=== PATIENT | female | born 1945 | race Caucasian/White ===

== ENCOUNTER 2021-06-18 13:15 | Inpatient (IN) | payer OTHER, MEDICARE ==
[2021-06-14 13:30] VITALS: BMI 32.9
[2021-06-21] MEDS ORDERED: MIDAZOLAM HCL 2 MG/2 ML SINGLE DOSE VIAL ONE ×3 (06:39→14:08)
[2021-06-21] MEDS ORDERED: BUPIVACAINE HCL/PF 0.5% (5 MG/ML) 30 ML VIAL IJ ONE ×2 (06:39→12:04)
[2021-06-21] MEDS ORDERED: BUPIVACAINE LIPOSOME/PF (EXPAREL) 266 MG/20 ML VIAL ONE (06:39)
[2021-06-21] MEDS ORDERED: SODIUM CHLORIDE 0.9% P/F 10 ML VIAL IJ ONE (06:39)
[2021-06-21] MEDS ORDERED: VANCOMYCIN 1,000 MG VIAL (RESTRICTED TO ID ONLY) ONE (11:50)
[2021-06-21] MEDS ORDERED: SUCCINYLCHOLINE CHLORIDE 200 MG/10 ML SYRINGE ONE (12:05)
[2021-06-21] MEDS ORDERED: ePHEDrine SULFATE 50 MG/1 ML AMPULE ONE (12:32)
[2021-06-21] MEDS ORDERED: TRANEXAMIC ACID 1000 MG/10 ML VIAL ONE (14:50)
[2021-06-21] MEDS ORDERED: BUPIVICAINE 0.25%/MORPH PF/KETOROLAC - 51ML DISP.SYRINGE IA ONE (15:04)
[2021-06-21] MEDS ORDERED: ONDANSETRON 4 MG/2 ML VIAL IVPUSH PRN ×2 (15:52→15:53)
[2021-06-21] MEDS ORDERED: MAG HYDROX/AL HYDROX/SIMETH 30 ML UNIT-DOSE CUP PO PRN (15:52)
[2021-06-21] MEDS ORDERED: oxyCODONE HCL 5 MG TABLET PO PRN (15:53)
[2021-06-21] MEDS ORDERED: LACTATED RINGERS SOLUTION 1,000 ML IV SCH (16:00)
[2021-06-21] MEDS: ACETAMINOPHEN 500 MG TABLET (FP) PO SCH ×2 (17:03→21:42)
[2021-06-21] MEDS ORDERED: DEXTROSE 5%-WATER 100 ML IVPB ONE (21:25)
[2021-06-21] MEDS ORDERED: ceFAZolin SODIUM 1 GM VIAL ONE (21:25)
[2021-06-21] MEDS: CEFAZOLIN 2 GM in DEXTROSE 5%-WATER 100 ML IVPB SCH (21:40)
[2021-06-21] MEDS: GABAPENTIN 300 MG CAPSULE PO SCH (21:41)
[2021-06-21] MEDS: SENNOSIDES/DOCUSATE COMBO (SENNA PLUS) TABLET (UD) PO SCH (21:41)
[2021-06-21] MEDS: oxyCODONE HCL 5 MG TABLET PO PRN (21:44)
[2021-06-22] MEDS: CEFAZOLIN 2 GM in DEXTROSE 5%-WATER 100 ML IVPB SCH ×2 (04:19→13:17)
[2021-06-22] MEDS: ACETAMINOPHEN 500 MG TABLET (FP) PO SCH ×4 (04:20→21:19)
[2021-06-22] MEDS ORDERED: DEXTROSE 5%-WATER 100 ML IVPB ONE ×2 (06:10→13:14)
[2021-06-22] MEDS ORDERED: ceFAZolin SODIUM 1 GM VIAL ONE ×2 (06:10→13:14)
[2021-06-22 08:28] LABS: CALCIUM 8.9 mg/dl (8.5-10); CREATININE 0.7 mg/dl (0.55-1.3)
[2021-06-22 09:46] LABS: HEMATOCRIT 32.7 % (32.4-45.2); HEMOGLOBIN 10.8 GM/dL (10.7-15.3); MCH 29.1 pg (25.7-33.7); MCHC 33.2 g/dl (32.0-36.0); MEAN CELL VOLUME 87.8 fl (80-96); MEAN PLT VOLUME 8.2 fl (7.5-11.1); PLATELET COUNT 293 10^3/uL (134-434); RBC 3.72 M/mm3 (3.60-5.2); WHITE BLOOD COUNT 8.4 K/mm3 (4.0-10.0)
[2021-06-22] MEDS: PANTOPRAZOLE 40 MG TABLET PO SCH (10:03)
[2021-06-22] MEDS: MULTIVITAMINS (DAILY MVI) TABLET (FP) PO SCH (10:03)
[2021-06-22] MEDS: ASPIRIN 325 MG TABLET PO SCH ×2 (10:03→21:18)
[2021-06-22] MEDS: FOLIC ACID 1 MG TABLET (FP) PO SCH (10:03)
[2021-06-22] MEDS: GABAPENTIN 300 MG CAPSULE PO SCH ×2 (10:03→21:19)
[2021-06-22] MEDS: oxyCODONE HCL 5 MG TABLET PO PRN ×3 (10:04→22:39)
[2021-06-22] MEDS: SENNOSIDES/DOCUSATE COMBO (SENNA PLUS) TABLET (UD) PO SCH ×2 (10:04→21:18)
[2021-06-23] MEDS: ACETAMINOPHEN 500 MG TABLET (FP) PO SCH ×2 (04:48→10:11)
[2021-06-23 09:57] LABS: HEMATOCRIT 33.2 % (32.4-45.2); HEMOGLOBIN 10.9 GM/dL (10.7-15.3); MCH 29.2 pg (25.7-33.7); MCHC 32.7 g/dl (32.0-36.0); MEAN CELL VOLUME 89.1 fl (80-96); MEAN PLT VOLUME 8.8 fl (7.5-11.1); PLATELET COUNT 286 10^3/uL (134-434); RBC 3.72 M/mm3 (3.60-5.2); RDW 14.4 % (11.6-15.6); WHITE BLOOD COUNT 7.8 K/mm3 (4.0-10.0)
[2021-06-23] MEDS: ASPIRIN 325 MG TABLET PO SCH (10:09)
[2021-06-23] MEDS: MULTIVITAMINS (DAILY MVI) TABLET (FP) PO SCH (10:10)
[2021-06-23] MEDS: FOLIC ACID 1 MG TABLET (FP) PO SCH (10:10)
[2021-06-23] MEDS: PANTOPRAZOLE 40 MG TABLET PO SCH (10:10)
[2021-06-23] MEDS: GABAPENTIN 300 MG CAPSULE PO SCH (10:10)
[2021-06-23] MEDS: SENNOSIDES/DOCUSATE COMBO (SENNA PLUS) TABLET (UD) PO SCH (10:11)
[2021-06-23 10:14] VITALS: BP 116/46; PULSE 76; TEMP 97.8
== END 2021-06-23 11:21 | disposition home or self-care (01) | DRG 470 ==
LOC: FM/S 06-21 06:19
PROVIDERS: ADMIT Orthopaedic Surgery Sports Medicine; ATTEND Nurse Practitioner Family
PROC: 0SRD0J9 Replacement of Left Knee Joint with Synthetic Substitute, Cemented, Open Approach (ICD-10-PCS; principal; 2021-06-21 12:49)
DX: M17.12 Unilateral primary osteoarthritis, left knee (principal); M32.9 Systemic lupus erythematosus, unspecified; M06.9 Rheumatoid arthritis, unspecified
CPT/HCPCS: 36415; 73560-TC-LT-FY; 80048; 85027; 94760; 97010-GP; 97116-GP; 97161-GP; C9803; U0003; U0005

== ENCOUNTER 2021-09-07 07:30 | Inpatient (IN) | payer OTHER, MEDICARE ==
[2021-09-07 07:43] VITALS: BMI 32.3
[2021-09-07 08:50] LABS: BASO % 1.4 % (0-2.0); EOS % 4.4 % (0-4.5); HEMATOCRIT 33.6 % (32.4-45.2); HEMOGLOBIN 11.2 GM/dL (10.7-15.3); LYMPH % 21.7 % (8-40); MCH 28.3 pg (25.7-33.7); MCHC 33.4 g/dl (32.0-36.0); MEAN CELL VOLUME 84.9 fl (80-96); MONO % 5.5 % (3.8-10.2); PLATELET COUNT 408 10^3/uL (134-434); RBC 3.96 M/mm3 (3.60-5.2); RDW 14.9 % (11.6-15.6); WHITE BLOOD COUNT 5.6 K/mm3 (4.0-10.0)
[2021-09-07 09:16] LABS: ALBUMIN 3.5 g/dl (3.4-5.0); BLOOD UREA NITROGEN 13.7 mg/dL (7-18); CALCIUM 9.5 mg/dL (8.5-10.1)
[2021-09-07 09:19] LABS: CREATININE 0.6 mg/dL (0.55-1.3)
[2021-09-07 09:21] LABS: BILIRUBIN,TOTAL 0.4 mg/dL (0.2-1); TOT PROT 7.4 g/dl (6.4-8.2)
[2021-09-07] MEDS ORDERED: VANCOMYCIN 1 GM in D5W (PRE-DOCKED) 1,000 MG/250 ML IVPB ONE (09:39)
[2021-09-07] MEDS ORDERED: VANCOMYCIN 1 GRAM (PRE-DOCKED) 1,000 MG/250 ML BAG IVPB ONE (09:42)
[2021-09-07] MEDS: ACETAMINOPHEN 325 MG TABLET (FP) PO PRN (18:57)
[2021-09-08] MEDS: ACETAMINOPHEN 325 MG TABLET (FP) PO PRN
[2021-09-08] MEDS ORDERED: DEXTROSE 5%-WATER 100 ML IVPB ONE (09:55)
[2021-09-08 10:21] LABS: HEMATOCRIT 33.9 % (32.4-45.2); HEMOGLOBIN 11.7 GM/dL (10.7-15.3); MCH 29.1 pg (25.7-33.7); MCHC 34.5 g/dl (32.0-36.0); MEAN CELL VOLUME 84.4 fl (80-96); MEAN PLT VOLUME 7.2 fl (7.5-11.1); PLATELET COUNT 409 10^3/uL (134-434); RBC 4.01 M/mm3 (3.60-5.2); RDW 14.7 % (11.6-15.6); WHITE BLOOD COUNT 5.1 K/mm3 (4.0-10.0)
[2021-09-08 10:34] LABS: CALCIUM 9.2 mg/dL (8.5-10.1)
[2021-09-08 10:35] LABS: ALBUMIN 3.4 g/dl (3.4-5.0); BLOOD UREA NITROGEN 9.5 mg/dL (7-18)
[2021-09-08 10:38] LABS: CREATININE 0.6 mg/dL (0.55-1.3)
[2021-09-08 10:40] LABS: BILIRUBIN,TOTAL 0.4 mg/dL (0.2-1); TOT PROT 7.2 g/dl (6.4-8.2)
[2021-09-08] MEDS: DAPTOMYCIN 700 MG in SODIUM CHLORIDE 50 ML IVPB SCH (10:43)
[2021-09-08] MEDS: ENOXAPARIN NA (PORCINE) 40 MG/0.4 ML DISP.SYRIN SQ SCH (10:44)
[2021-09-08] MEDS: CEFTRIAXONE 2 GM in DEXTROSE 5%-WATER 100 ML IVPB SCH (10:44)
[2021-09-08] MEDS: HYDROXYCHLOROQUINE SO4 200 MG TABLET (FP) PO SCH (10:44)
[2021-09-09] MEDS ORDERED: DEXTROSE 5%-WATER 100 ML IVPB ONE (09:08)
[2021-09-09] MEDS: ENOXAPARIN NA (PORCINE) 40 MG/0.4 ML DISP.SYRIN SQ SCH (09:16)
[2021-09-09] MEDS: CEFTRIAXONE 2 GM in DEXTROSE 5%-WATER 100 ML IVPB SCH (09:16)
[2021-09-09] MEDS: HYDROXYCHLOROQUINE SO4 200 MG TABLET (FP) PO SCH (09:17)
[2021-09-09 09:33] LABS: BASO % 2.5 % (0-2.0); EOS % 4.3 % (0-4.5); HEMATOCRIT 35.6 % (32.4-45.2); HEMOGLOBIN 11.8 GM/dL (10.7-15.3); LYMPH % 32.3 % (8-40); MCH 28.2 pg (25.7-33.7); MCHC 33.1 g/dl (32.0-36.0); MEAN CELL VOLUME 85.5 fl (80-96); MEAN PLT VOLUME 7.4 fl (7.5-11.1); MONO % 4.8 % (3.8-10.2); NEUT % 56.1 % (42.8-82.8); PLATELET COUNT 442 10^3/uL (134-434); RBC 4.16 M/mm3 (3.60-5.2); RDW 14.8 % (11.6-15.6)
[2021-09-09] MEDS: DAPTOMYCIN 700 MG in SODIUM CHLORIDE 50 ML IVPB SCH (09:36)
[2021-09-09 10:03] LABS: CALCIUM 9.2 mg/dL (8.5-10.1); CREATININE 0.6 mg/dL (0.55-1.3)
[2021-09-09 10:04] LABS: ALBUMIN 3.5 g/dl (3.4-5.0); BLOOD UREA NITROGEN 11.5 mg/dL (7-18); MAGNESIUM 2.2 mg/dL (1.8-2.4)
[2021-09-09 10:07] LABS: PHOSPHOROUS 4.6 mg/dL (2.5-4.9)
[2021-09-09 10:08] LABS: TOT PROT 7.6 g/dl (6.4-8.2)
[2021-09-09 10:21] LABS: BILIRUBIN,TOTAL 0.4 mg/dL (0.2-1)
[2021-09-10] MEDS: ACETAMINOPHEN 325 MG TABLET (FP) PO PRN (01:08)
[2021-09-10] MEDS ORDERED: DEXTROSE 5%-WATER 100 ML IVPB ONE (09:30)
[2021-09-10 09:32] LABS: BASO % 0.9 % (0-2.0); EOS % 4.8 % (0-4.5); HEMOGLOBIN 11.6 GM/dL (10.7-15.3); MCH 28.4 pg (25.7-33.7); MCHC 33.1 g/dl (32.0-36.0); MEAN CELL VOLUME 85.7 fl (80-96); MEAN PLT VOLUME 7.4 fl (7.5-11.1); MONO % 3.8 % (3.8-10.2); NEUT % 59.5 % (42.8-82.8); PLATELET COUNT 384 10^3/uL (134-434); RBC 4.08 M/mm3 (3.60-5.2); RDW 14.7 % (11.6-15.6); WHITE BLOOD COUNT 5.1 K/mm3 (4.0-10.0)
[2021-09-10 10:00] LABS: BLOOD UREA NITROGEN 12.7 mg/dL (7-18); CALCIUM 9.6 mg/dL (8.5-10.1); MAGNESIUM 2.3 mg/dL (1.8-2.4)
[2021-09-10 10:03] LABS: CREATININE 0.7 mg/dL (0.55-1.3)
[2021-09-10 10:04] LABS: PHOSPHOROUS 4.9 mg/dL (2.5-4.9)
[2021-09-10 10:16] LABS: ERYTHROCYTE SEDIMENTATION RATE 37 mm/hr (0-30)
[2021-09-10] MEDS: CEFTRIAXONE 2 GM in DEXTROSE 5%-WATER 100 ML IVPB SCH (10:23)
[2021-09-10] MEDS: HYDROXYCHLOROQUINE SO4 200 MG TABLET (FP) PO SCH (10:23)
[2021-09-10] MEDS: ENOXAPARIN NA (PORCINE) 40 MG/0.4 ML DISP.SYRIN SQ SCH (10:23)
[2021-09-10] MEDS: DAPTOMYCIN 700 MG in SODIUM CHLORIDE 50 ML IVPB SCH (11:56)
[2021-09-11] MEDS ORDERED: DEXTROSE 5%-WATER 100 ML IVPB ONE (08:58)
[2021-09-11 09:18] LABS: EOS % 4.4 % (0-4.5); HEMATOCRIT 34.1 % (32.4-45.2); HEMOGLOBIN 11.3 GM/dL (10.7-15.3); LYMPH % 29.5 % (8-40); MCH 28.3 pg (25.7-33.7); MCHC 33.1 g/dl (32.0-36.0); MEAN CELL VOLUME 85.6 fl (80-96); NEUT % 59.1 % (42.8-82.8); PLATELET COUNT 373 10^3/uL (134-434); RBC 3.99 M/mm3 (3.60-5.2); RDW 14.8 % (11.6-15.6)
[2021-09-11 09:58] LABS: CALCIUM 9.1 mg/dL (8.5-10.1)
[2021-09-11 09:59] LABS: BLOOD UREA NITROGEN 11.4 mg/dL (7-18); CREATININE 0.6 mg/dL (0.55-1.3); PHOSPHOROUS 3.9 mg/dL (2.5-4.9)
[2021-09-11] MEDS: CEFTRIAXONE 2 GM in DEXTROSE 5%-WATER 100 ML IVPB SCH (10:36)
[2021-09-11] MEDS: HYDROXYCHLOROQUINE SO4 200 MG TABLET (FP) PO SCH (10:37)
[2021-09-11] MEDS: ENOXAPARIN NA (PORCINE) 40 MG/0.4 ML DISP.SYRIN SQ SCH (10:37)
[2021-09-11 10:54] VITALS: BP 127/62; PULSE 71; TEMP 97.8
[2021-09-11] MEDS: DAPTOMYCIN 700 MG in SODIUM CHLORIDE 50 ML IVPB SCH (11:29)
[2021-10-03 12:47] LABS: HEMATOCRIT 34.6 % (32.4-45.2); HEMOGLOBIN 12.2 G/dL (10.7-15.3); MCH 29.9 pg (25.7-33.7); MCHC 35.3 g/dl (32.0-36.0); MEAN CELL VOLUME 84.7 fl (80-96); MEAN PLT VOLUME 7.2 fl (7.5-11.1); PLATELET COUNT 295.6 10^3/uL (134-434); RBC 4.08 10^6/uL (3.60-5.2); RDW 15.3 % (11.6-15.6); WHITE BLOOD COUNT 6.1 10^3/uL (4.0-10.8)
[2021-10-03 12:56] LABS: ALBUMIN 3.9 g/dl (3.4-5.0); BILIRUBIN,TOTAL 0.5 mg/dl (0.2-1); CALCIUM 9.7 mg/dl (8.5-10); CREATININE 0.6 mg/dl (0.55-1.3); TOT PROT 7.2 g/dl (6.4-8.2)
== END 2021-09-11 14:35 | disposition home or self-care (01) | DRG 560 ==
LOC: JER 07:30 → JERBED 10:12 → J5S 10:55
PROVIDERS: ADMIT Internal Medicine; ATTEND Internal Medicine
PROC: 05HB33Z Insertion of Infusion Device into Right Basilic Vein, Percutaneous Approach (ICD-10-PCS; principal; 2021-09-11)
PROC: B51MZZA Fluoroscopy of Right Upper Extremity Veins, Guidance (ICD-10-PCS; 2021-09-11)
DX: T84.59XA Infection and inflammatory reaction due to other internal joint prosthesis, initial encounter (principal); M86.9 Osteomyelitis, unspecified; L03.90 Cellulitis, unspecified; Z96.659 Presence of unspecified artificial knee joint; M06.9 Rheumatoid arthritis, unspecified; M32.9 Systemic lupus erythematosus, unspecified; Y83.9 Surgical procedure, unspecified as the cause of abnormal reaction of the patient, or of later complication, without mention of misadventure at the time of the procedure
CPT/HCPCS: 36415; 36569; 71045-TC-FY; 77001-TC-FY; 80048; 80053; 82550; 83735; 84100; 85025; 85027; 85651; 86140; 87040; 93005; 93010; 97116-GP; 97162-GP; 99285-25; C1751; C9803-CS; J0878; U0003; U0005

== ENCOUNTER 2021-09-12 11:08 | Day surgery (SDC) | payer OTHER, MEDICARE ==
[2021-09-12] MEDS ORDERED: CEFTRIAXONE 2 GM in DEXTROSE 5%-WATER 100 ML IVPB ONE ×2 (11:45→12:00)
[2021-09-12] MEDS ORDERED: DEXTROSE 5%-WATER 100 ML IVPB ONE (11:54)
[2021-09-12 12:01] VITALS: TEMP 97.7
[2021-09-12] MEDS ORDERED: DAPTOMYCIN 700 MG in SODIUM CHLORIDE 50 ML IVPB ONE (12:30)
[2021-09-12 14:02] VITALS: BP 126/64; PULSE 79
== END 2021-09-12 17:21 | disposition home or self-care (01) ==
LOC: FINFUSION 11:08 → FM/S 11:09 → FINFUSION 17:21
PROVIDERS: ATTEND Internal Medicine Infectious Disease
DX: M86.9 Osteomyelitis, unspecified (principal)
CPT/HCPCS: 96365; 96367; J0878

== ENCOUNTER 2021-09-13 11:10 | Day surgery (SDC) | payer OTHER, MEDICARE ==
[2021-09-13] MEDS ORDERED: DEXTROSE 5%-WATER 100 ML IVPB ONE (11:36)
[2021-09-13 11:56] VITALS: TEMP 97.8
[2021-09-13] MEDS ORDERED: CEFTRIAXONE 2 GM in DEXTROSE 5%-WATER 100 ML IVPB ONE (12:00)
[2021-09-13] MEDS ORDERED: DAPTOMYCIN 700 MG in SODIUM CHLORIDE 50 ML IVPB ONE (12:30)
[2021-09-13 13:42] VITALS: BP 130/80; PULSE 77
== END 2021-09-13 15:00 | disposition home or self-care (01) ==
LOC: FINFUSION 11:10 → FM/S 11:12 → FINFUSION 15:00
PROVIDERS: ATTEND Internal Medicine Infectious Disease
DX: M86.9 Osteomyelitis, unspecified (principal)
CPT/HCPCS: 96365; 96367; J0878

== ENCOUNTER 2021-09-14 10:44 | Day surgery (SDC) | payer OTHER, MEDICARE ==
[2021-09-14] MEDS ORDERED: CEFTRIAXONE 2 GM in DEXTROSE 5%-WATER 100 ML IVPB ONE (11:45)
[2021-09-14 11:51] VITALS: PULSE 75; TEMP 98.3
[2021-09-14] MEDS ORDERED: DAPTOMYCIN 700 MG in SODIUM CHLORIDE 50 ML IVPB ONE (12:30)
== END 2021-09-14 13:46 | disposition home or self-care (01) ==
LOC: FINFUSION 10:44 → FM/S 10:45 → FINFUSION 13:46
PROVIDERS: ATTEND Internal Medicine Infectious Disease
DX: M86.9 Osteomyelitis, unspecified (principal)
CPT/HCPCS: 96365; 96367; J0878

== ENCOUNTER 2021-09-15 10:59 | Day surgery (SDC) | payer OTHER, MEDICARE ==
[2021-09-15] MEDS ORDERED: DAPTOMYCIN 700 MG in SODIUM CHLORIDE 50 ML IVPB SCH ×2 (11:45→12:30)
[2021-09-15] MEDS ORDERED: CEFTRIAXONE 2 GM-D5W BAG 2 GM/50 ML BAG IVPB ONE (11:45)
[2021-09-15] MEDS: CEFTRIAXONE 2 GM-D5W BAG 2 GM/50 ML BAG IVPB ONE ×2 (12:30→12:31)
[2021-09-15 14:11] VITALS: BP 135/60; PULSE 70; TEMP 98
== END 2021-09-15 14:07 | disposition home or self-care (01) ==
LOC: FINFUSION 10:59 → FM/S 11:00 → FINFUSION 14:07
PROVIDERS: ATTEND Internal Medicine Infectious Disease
DX: M86.9 Osteomyelitis, unspecified (principal)
CPT/HCPCS: 96365; 96367; J0878

== ENCOUNTER 2021-09-16 10:55 | Day surgery (SDC) | payer OTHER, MEDICARE ==
[2021-09-16] MEDS ORDERED: CEFTRIAXONE 2 GM in DEXTROSE 5%-WATER 100 ML IVPB ONE (12:00)
[2021-09-16] MEDS ORDERED: DAPTOMYCIN 700 MG in SODIUM CHLORIDE 50 ML IVPB ONE (13:00)
[2021-09-16 14:21] VITALS: BP 137/61; PULSE 69; TEMP 97.8
== END 2021-09-16 14:34 | disposition home or self-care (01) ==
LOC: FINFUSION 10:55 → FM/S 14:25 → FINFUSION 14:34
PROVIDERS: ATTEND Internal Medicine Infectious Disease
DX: M86.9 Osteomyelitis, unspecified (principal)
CPT/HCPCS: 96365; 96367; J0878

== ENCOUNTER 2021-09-17 11:24 | Day surgery (SDC) | payer OTHER, MEDICARE ==
[2021-09-17] MEDS ORDERED: DEXTROSE 5%-WATER - 100 ML IVPB ONE (11:45)
[2021-09-17] MEDS ORDERED: CEFTRIAXONE 2 GM in DEXTROSE 5%-WATER - 100 ML IVPB ONE (12:00)
[2021-09-17 12:11] VITALS: PULSE 78; TEMP 98
[2021-09-17] MEDS ORDERED: DAPTOMYCIN 700 MG in SODIUM CHLORIDE 50 ML IVPB ONE (12:30)
[2021-09-17 13:52] VITALS: BP 110/54
== END 2021-09-17 14:34 | disposition home or self-care (01) ==
LOC: FINFUSION 11:24 → FM/S 11:29 → FINFUSION 14:34
PROVIDERS: ATTEND Internal Medicine Infectious Disease
DX: M86.9 Osteomyelitis, unspecified (principal)
CPT/HCPCS: 96365; 96367; J0878

== ENCOUNTER 2021-09-18 11:06 | Day surgery (SDC) | payer OTHER, MEDICARE ==
[2021-09-18] MEDS ORDERED: DEXTROSE 5%-WATER 100 ML IVPB ONE (11:35)
[2021-09-18] MEDS ORDERED: CEFTRIAXONE 2 GM in DEXTROSE 5%-WATER 100 ML IVPB ONE (12:00)
[2021-09-18] MEDS ORDERED: DAPTOMYCIN 700 MG in SODIUM CHLORIDE 50 ML IVPB ONE (12:30)
[2021-09-18 13:24] VITALS: BP 112/54; PULSE 79; TEMP 97.8
== END 2021-09-18 13:00 | disposition home or self-care (01) ==
LOC: FINFUSION 11:06 → FM/S 11:11 → FINFUSION 13:00
PROVIDERS: ATTEND Internal Medicine Infectious Disease
DX: M86.9 Osteomyelitis, unspecified (principal)
CPT/HCPCS: 96365; 96367; J0878

== ENCOUNTER 2021-09-19 10:59 | Day surgery (SDC) | payer OTHER, MEDICARE ==
[2021-09-19] MEDS ORDERED: DEXTROSE 5%-WATER 100 ML IVPB ONE (11:17)
[2021-09-19] MEDS ORDERED: CEFTRIAXONE 2 GM in DEXTROSE 5%-WATER 100 ML IVPB ONE (11:30)
[2021-09-19] MEDS ORDERED: DAPTOMYCIN 700 MG in SODIUM CHLORIDE 50 ML IVPB ONE (12:15)
[2021-09-19 13:48] VITALS: BP 123/59; PULSE 72; TEMP 98.1
[2021-09-19 14:15] LABS: HEMATOCRIT 33.6 % (32.4-45.2); HEMOGLOBIN 11.7 G/dL (10.7-15.3); MCH 29.5 pg (25.7-33.7); MCHC 34.7 g/dl (32.0-36.0); MEAN CELL VOLUME 85.1 fl (80-96); MEAN PLT VOLUME 7.1 fl (7.5-11.1); RBC 3.95 10^6/uL (3.60-5.2); RDW 15.6 % (11.6-15.6); WHITE BLOOD COUNT 6.2 10^3/uL (4.0-10.8)
[2021-09-19 14:34] LABS: ALBUMIN 3.6 g/dl (3.4-5.0); BILIRUBIN,TOTAL 0.4 mg/dl (0.2-1); CALCIUM 9.2 mg/dl (8.5-10); CREATININE 0.5 mg/dl (0.55-1.3); TOT PROT 7.1 g/dl (6.4-8.2)
== END 2021-09-19 14:02 | disposition home or self-care (01) ==
LOC: FINFUSION 10:59 → FM/S 11:03 → FINFUSION 14:02
PROVIDERS: ATTEND Internal Medicine Infectious Disease
DX: M86.9 Osteomyelitis, unspecified (principal)
CPT/HCPCS: 36415; 80053; 82550; 85027; 96365; 96367; J0878

== ENCOUNTER 2021-09-20 10:38 | Day surgery (SDC) | payer OTHER, MEDICARE ==
[2021-09-20 11:16] VITALS: TEMP 97.9
[2021-09-20] MEDS ORDERED: DAPTOMYCIN 700 MG in SODIUM CHLORIDE 50 ML IVPB ONE (12:00)
[2021-09-20] MEDS ORDERED: CEFTRIAXONE 2 GM in DEXTROSE 5%-WATER 100 ML IVPB ONE (12:00)
[2021-09-20 12:55] VITALS: BP 132/54; PULSE 72
== END 2021-09-20 13:01 | disposition home or self-care (01) ==
LOC: FINFUSION 10:38 → FM/S 11:09 → FINFUSION 13:01
PROVIDERS: ATTEND Internal Medicine Infectious Disease
DX: M86.9 Osteomyelitis, unspecified (principal)
CPT/HCPCS: 96365; 96366; 96367; J0878

== ENCOUNTER 2021-09-21 10:41 | Day surgery (SDC) | payer OTHER, MEDICARE ==
[2021-09-21] MEDS ORDERED: DEXTROSE 5%-WATER 100 ML IVPB ONE (10:58)
[2021-09-21] MEDS ORDERED: CEFTRIAXONE 2 GM in DEXTROSE 5%-WATER 100 ML IVPB ONE (11:00)
[2021-09-21] MEDS ORDERED: DAPTOMYCIN 700 MG in SODIUM CHLORIDE 50 ML IVPB ONE (11:45)
[2021-09-21 12:18] VITALS: BP 130/64; PULSE 82; TEMP 98.1
== END 2021-09-21 12:23 | disposition home or self-care (01) ==
LOC: FINFUSION 10:41 → FM/S 10:42 → FINFUSION 12:23
PROVIDERS: ATTEND Internal Medicine Infectious Disease
DX: M86.9 Osteomyelitis, unspecified (principal)
CPT/HCPCS: 96365; 96367; J0878

== ENCOUNTER 2021-09-22 10:51 | Day surgery (SDC) | payer OTHER, MEDICARE ==
[2021-09-22] MEDS ORDERED: CEFTRIAXONE 2 GM-D5W BAG 2 GM/50 ML BAG IVPB ONE (11:15)
[2021-09-22] MEDS ORDERED: DAPTOMYCIN 700 MG in SODIUM CHLORIDE 50 ML IVPB SCH (11:15)
[2021-09-22 12:40] VITALS: BP 141/70; PULSE 66; TEMP 98
== END 2021-09-22 12:45 | disposition home or self-care (01) ==
LOC: FINFUSION 10:51 → FM/S 10:52 → FINFUSION 12:45
PROVIDERS: ATTEND Internal Medicine Infectious Disease
DX: M86.9 Osteomyelitis, unspecified (principal)
CPT/HCPCS: 96365; 96367; J0878

== ENCOUNTER 2021-09-23 10:46 | Day surgery (SDC) | payer OTHER, MEDICARE ==
[2021-09-23 11:09] VITALS: PULSE 73
[2021-09-23] MEDS ORDERED: CEFTRIAXONE 2 GM in DEXTROSE 5%-WATER 100 ML IVPB ONE (11:30)
[2021-09-23 12:30] VITALS: BP 129/58; TEMP 97.8
[2021-09-23] MEDS ORDERED: DAPTOMYCIN 700 MG in SODIUM CHLORIDE 50 ML IVPB ONE (12:30)
== END 2021-09-23 12:30 | disposition home or self-care (01) ==
LOC: FINFUSION 10:46 → FM/S 10:51 → FINFUSION 12:30
PROVIDERS: ATTEND Internal Medicine Infectious Disease
DX: M86.9 Osteomyelitis, unspecified (principal)
CPT/HCPCS: 96365; 96366; 96367; J0878

== ENCOUNTER 2021-09-24 11:06 | Day surgery (SDC) | payer OTHER, MEDICARE ==
[2021-09-24] MEDS ORDERED: DEXTROSE 5%-WATER 100 ML IVPB ONE (11:15)
[2021-09-24] MEDS ORDERED: CEFTRIAXONE 2 GM in DEXTROSE 5%-WATER 100 ML IVPB ONE (11:30)
[2021-09-24] MEDS ORDERED: DAPTOMYCIN 700 MG in SODIUM CHLORIDE 50 ML IVPB ONE (12:30)
[2021-09-24 12:56] VITALS: BP 136/56; PULSE 75; TEMP 98.1
== END 2021-09-24 13:03 | disposition home or self-care (01) ==
LOC: FINFUSION 11:06 → FM/S 11:07 → FINFUSION 13:03
PROVIDERS: ATTEND Internal Medicine Infectious Disease
DX: M86.9 Osteomyelitis, unspecified (principal)
CPT/HCPCS: 96365; 96367; J0878

== ENCOUNTER 2021-09-25 10:51 | Day surgery (SDC) | payer OTHER, MEDICARE ==
[2021-09-25] MEDS ORDERED: DEXTROSE 5%-WATER 100 ML IVPB ONE (11:14)
[2021-09-25] MEDS ORDERED: CEFTRIAXONE 2 GM in DEXTROSE 5%-WATER 100 ML IVPB ONE (11:15)
[2021-09-25] MEDS ORDERED: DAPTOMYCIN 700 MG in SODIUM CHLORIDE 50 ML IVPB ONE (11:30)
[2021-09-25 13:38] VITALS: BP 121/55; PULSE 65; TEMP 98.1
== END 2021-09-25 13:44 | disposition home or self-care (01) ==
LOC: FINFUSION 10:51 → FM/S 10:52 → FINFUSION 13:44
PROVIDERS: ATTEND Internal Medicine Infectious Disease
DX: M86.9 Osteomyelitis, unspecified (principal)
CPT/HCPCS: 96365; 96366; 96367; J0878

== ENCOUNTER 2021-09-26 12:29 | Day surgery (SDC) | payer OTHER, MEDICARE ==
[2021-09-26] MEDS ORDERED: DEXTROSE 5%-WATER 100 ML IVPB ONE (13:12)
[2021-09-26] MEDS ORDERED: DAPTOMYCIN 700 MG in SODIUM CHLORIDE 50 ML IVPB ONE (13:15)
[2021-09-26] MEDS ORDERED: CEFTRIAXONE 2 GM in DEXTROSE 5%-WATER 100 ML IVPB ONE (13:15)
[2021-09-26 13:39] LABS: HEMATOCRIT 34.3 % (32.4-45.2); HEMOGLOBIN 11.8 G/dL (10.7-15.3); MCH 29.2 pg (25.7-33.7); MCHC 34.5 g/dl (32.0-36.0); MEAN CELL VOLUME 84.7 fl (80-96); MEAN PLT VOLUME 7.3 fl (7.5-11.1); PLATELET COUNT 338.6 10^3/uL (134-434); RBC 4.05 10^6/uL (3.60-5.2); RDW 15.3 % (11.6-15.6); WHITE BLOOD COUNT 6.6 10^3/uL (4.0-10.8)
[2021-09-26 13:50] LABS: ALBUMIN 3.8 g/dl (3.4-5.0); BILIRUBIN,TOTAL 0.4 mg/dl (0.2-1); CALCIUM 9.7 mg/dl (8.5-10); CREATININE 0.6 mg/dl (0.55-1.3); TOT PROT 7.4 g/dl (6.4-8.2)
[2021-09-26 13:54] VITALS: TEMP 98.2
[2021-09-26 16:29] VITALS: BP 112/55; PULSE 74
== END 2021-09-26 14:30 | disposition home or self-care (01) ==
LOC: FINFUSION 12:29 → FM/S 12:29 → FINFUSION 14:30
PROVIDERS: ATTEND Internal Medicine Infectious Disease
DX: M86.9 Osteomyelitis, unspecified (principal)
CPT/HCPCS: 36415; 80053; 82550; 85027; 96365; 96367; J0878

== ENCOUNTER 2021-09-27 11:11 | Day surgery (SDC) | payer OTHER, MEDICARE ==
[2021-09-27] MEDS ORDERED: CEFTRIAXONE 2 GM in DEXTROSE 5%-WATER 100 ML IVPB ONE (11:45)
[2021-09-27] MEDS ORDERED: DAPTOMYCIN 700 MG in SODIUM CHLORIDE 50 ML IVPB ONE (12:15)
[2021-09-27 12:51] VITALS: TEMP 98.3
[2021-09-27 13:57] VITALS: BP 116/52; PULSE 67
== END 2021-09-27 14:00 | disposition home or self-care (01) ==
LOC: FINFUSION 11:11 → FM/S 11:13 → FINFUSION 14:00
PROVIDERS: ATTEND Internal Medicine Infectious Disease
DX: M86.9 Osteomyelitis, unspecified (principal)
CPT/HCPCS: 96365; 96366; 96367; J0878

== ENCOUNTER 2021-09-28 10:31 | Day surgery (SDC) | payer OTHER, MEDICARE ==
[2021-09-28] MEDS ORDERED: DEXTROSE 5%-WATER 100 ML IVPB ONE (10:50)
[2021-09-28] MEDS ORDERED: CEFTRIAXONE 2 GM in DEXTROSE 5%-WATER 100 ML IVPB ONE (10:55)
[2021-09-28] MEDS ORDERED: DAPTOMYCIN 700 MG in SODIUM CHLORIDE 50 ML IVPB ONE (11:00)
[2021-09-28 12:25] VITALS: BP 112/56; PULSE 78
[2021-09-28 12:53] VITALS: TEMP 97.2
== END 2021-09-28 12:27 | disposition home or self-care (01) ==
LOC: FINFUSION 10:31 → FM/S 10:32 → FINFUSION 12:27
PROVIDERS: ATTEND Internal Medicine Infectious Disease
DX: M86.9 Osteomyelitis, unspecified (principal)
CPT/HCPCS: 96365; 96366; 96367; J0878

== ENCOUNTER 2021-09-29 10:54 | Day surgery (SDC) | payer OTHER, MEDICARE ==
[2021-09-29] MEDS ORDERED: CEFTRIAXONE 2 GM-D5W BAG 2 GM/50 ML BAG IVPB ONE (11:15)
[2021-09-29] MEDS ORDERED: DAPTOMYCIN 700 MG in SODIUM CHLORIDE 50 ML IVPB SCH (11:15)
[2021-09-29 12:52] VITALS: BP 133/59; PULSE 67; TEMP 98
== END 2021-09-29 12:54 | disposition home or self-care (01) ==
LOC: FINFUSION 10:54 → FM/S 10:55 → FINFUSION 12:54
PROVIDERS: ATTEND Internal Medicine Infectious Disease
DX: M86.9 Osteomyelitis, unspecified (principal)
CPT/HCPCS: 96365; 96367; J0878

== ENCOUNTER 2021-09-30 11:06 | Day surgery (SDC) | payer OTHER, MEDICARE ==
[2021-09-30] MEDS ORDERED: CEFTRIAXONE 2 GM in DEXTROSE 5%-WATER 2 GM/50 ML BAG IVPB ONE (13:00)
[2021-09-30] MEDS ORDERED: DAPTOMYCIN 700 MG in SODIUM CHLORIDE 100 ML IVPB SCH (13:00)
[2021-09-30 14:44] VITALS: BP 115/61; PULSE 65; TEMP 98.9
== END 2021-09-30 14:47 | disposition home or self-care (01) ==
LOC: FINFUSION 11:06 → FM/S 13:28 → FINFUSION 14:47
PROVIDERS: ATTEND Internal Medicine Infectious Disease
DX: M86.9 Osteomyelitis, unspecified (principal)
CPT/HCPCS: 96365; 96366; 96367; J0878

== ENCOUNTER 2021-10-01 10:55 | Day surgery (SDC) | payer OTHER, MEDICARE ==
[2021-10-01] MEDS ORDERED: DEXTROSE 5%-WATER 100 ML IVPB ONE (11:07)
[2021-10-01] MEDS ORDERED: CEFTRIAXONE 2 GM in DEXTROSE 5%-WATER 100 ML IVPB ONE (11:15)
[2021-10-01] MEDS ORDERED: DAPTOMYCIN 700 MG in SODIUM CHLORIDE 50 ML IVPB ONE (12:00)
[2021-10-01 12:25] VITALS: TEMP 98.4
[2021-10-01 13:03] VITALS: BP 135/56; PULSE 88
== END 2021-10-01 13:21 | disposition home or self-care (01) ==
LOC: FINFUSION 10:55 → FM/S 10:55 → FINFUSION 13:21
PROVIDERS: ATTEND Internal Medicine Infectious Disease
DX: M86.9 Osteomyelitis, unspecified (principal)
CPT/HCPCS: 96365; 96367; J0878

== ENCOUNTER 2021-10-02 10:52 | Day surgery (SDC) | payer OTHER, MEDICARE ==
[2021-10-02] MEDS ORDERED: DEXTROSE 5%-WATER 100 ML IVPB ONE (11:28)
[2021-10-02] MEDS ORDERED: CEFTRIAXONE 2 GM in DEXTROSE 5%-WATER 100 ML IVPB ONE (11:30)
[2021-10-02 11:41] VITALS: TEMP 98.4
[2021-10-02] MEDS ORDERED: DAPTOMYCIN 700 MG in SODIUM CHLORIDE 50 ML IVPB ONE (12:30)
[2021-10-02 13:46] VITALS: BP 137/68; PULSE 78
== END 2021-10-02 13:46 | disposition home or self-care (01) ==
LOC: FINFUSION 10:52 → FM/S 10:54 → FINFUSION 13:46
PROVIDERS: ATTEND Internal Medicine Infectious Disease
DX: M86.9 Osteomyelitis, unspecified (principal)
CPT/HCPCS: 96365; 96367; J0878

== ENCOUNTER 2021-10-03 11:33 | Day surgery (SDC) | payer OTHER, MEDICARE ==
[2021-10-03] MEDS ORDERED: CEFTRIAXONE 2 GM in DEXTROSE 5%-WATER 100 ML IVPB ONE (12:00)
[2021-10-03] MEDS ORDERED: DEXTROSE 5%-WATER 100 ML IVPB ONE (12:01)
[2021-10-03 12:23] VITALS: TEMP 97.5
[2021-10-03] MEDS ORDERED: DAPTOMYCIN 700 MG in SODIUM CHLORIDE 50 ML IVPB ONE (12:30)
[2021-10-03 13:26] VITALS: BP 124/61; PULSE 71
== END 2021-10-03 15:14 | disposition home or self-care (01) ==
LOC: FINFUSION 11:33 → FM/S 11:39 → FINFUSION 15:14
PROVIDERS: ATTEND Internal Medicine Infectious Disease
DX: M86.9 Osteomyelitis, unspecified (principal)
CPT/HCPCS: 96365; 96367; J0878

== ENCOUNTER 2021-10-04 11:13 | Day surgery (SDC) | payer OTHER, MEDICARE ==
[2021-10-04] MEDS ORDERED: DEXTROSE 5%-WATER 100 ML IVPB ONE (11:35)
[2021-10-04] MEDS ORDERED: CEFTRIAXONE 2 GM in DEXTROSE 5%-WATER 100 ML IVPB ONE (11:45)
[2021-10-04] MEDS ORDERED: DAPTOMYCIN 700 MG in SODIUM CHLORIDE 50 ML IVPB ONE (12:30)
[2021-10-04 12:31] VITALS: BP 120/59; PULSE 76; TEMP 97.9
== END 2021-10-04 12:50 | disposition home or self-care (01) ==
LOC: FINFUSION 11:13 → FM/S 11:14 → FINFUSION 12:50
PROVIDERS: ATTEND Internal Medicine Infectious Disease
DX: M86.9 Osteomyelitis, unspecified (principal)
CPT/HCPCS: 96365; 96367; J0878

== ENCOUNTER 2021-10-05 10:52 | Day surgery (SDC) | payer OTHER, MEDICARE ==
[2021-10-05 11:07] VITALS: BP 102/55; PULSE 78; TEMP 97.9
[2021-10-05] MEDS ORDERED: DEXTROSE 5%-WATER - 100 ML IVPB ONE (11:21)
[2021-10-05] MEDS ORDERED: CEFTRIAXONE 2 GM in DEXTROSE 5%-WATER - 100 ML IVPB ONE (11:30)
[2021-10-05] MEDS ORDERED: DAPTOMYCIN 700 MG in SODIUM CHLORIDE 50 ML IVPB ONE (12:30)
== END 2021-10-05 12:50 | disposition home or self-care (01) ==
LOC: FM/S 10:52 → FINFUSION 10:52 → FM/S 10:55 → FINFUSION 12:50
PROVIDERS: ATTEND Internal Medicine Infectious Disease
DX: M86.9 Osteomyelitis, unspecified (principal)
CPT/HCPCS: 96365; 96367; J0878

== ENCOUNTER 2021-10-06 11:17 | Day surgery (SDC) | payer OTHER, MEDICARE ==
[2021-10-06 11:46] VITALS: TEMP 98.1
[2021-10-06] MEDS ORDERED: CEFTRIAXONE 2 GM-D5W BAG 2 GM/50 ML BAG IVPB ONE ×2 (12:00)
[2021-10-06] MEDS ORDERED: DAPTOMYCIN 700 MG in SODIUM CHLORIDE 50 ML IVPB ONE (12:00)
[2021-10-06 13:20] VITALS: BP 128/67; PULSE 72
[2021-10-07] MEDS ORDERED: CEFTRIAXONE 2 GM-D5W BAG 2 GM/50 ML BAG IVPB SCH (11:39)
== END 2021-10-06 13:00 | disposition home or self-care (01) ==
LOC: FINFUSION 11:17 → FM/S 11:26 → FINFUSION 13:00
PROVIDERS: ATTEND Internal Medicine Infectious Disease
DX: M86.9 Osteomyelitis, unspecified (principal)
CPT/HCPCS: 96365; 96366; 96367; J0878

== ENCOUNTER 2021-10-07 10:56 | Day surgery (SDC) | payer OTHER, MEDICARE ==
[2021-10-07] MEDS ORDERED: CEFTRIAXONE 2 GM in DEXTROSE 5%-WATER 100 ML IVPB ONE (11:00)
[2021-10-07] MEDS ORDERED: DAPTOMYCIN 700 MG in SODIUM CHLORIDE 50 ML IVPB ONE (12:00)
[2021-10-07 13:57] VITALS: BP 109/87; PULSE 78; TEMP 98.7
== END 2021-10-07 13:53 | disposition home or self-care (01) ==
LOC: FINFUSION 10:56 → FM/S 11:00 → FINFUSION 13:53
PROVIDERS: ATTEND Internal Medicine Infectious Disease
DX: M86.9 Osteomyelitis, unspecified (principal)
CPT/HCPCS: 96365; 96367; J0878

== ENCOUNTER 2021-10-08 08:16 | Emergency (ER) | payer OTHER, MEDICARE ==
[2021-10-08 08:31] VITALS: BP 142/67; PULSE 83; TEMP 97.9; BMI 32.5
== END 2021-10-08 09:25 | disposition home or self-care (01) ==
LOC: JER 08:16
DX: T82.898A Other specified complication of vascular prosthetic devices, implants and grafts, initial encounter (principal)
CPT/HCPCS: 99282-25

== ENCOUNTER 2021-10-08 11:06 | Day surgery (SDC) | payer OTHER, MEDICARE ==
[2021-10-08] MEDS ORDERED: DEXTROSE 5%-WATER 100 ML IVPB ONE (11:36)
[2021-10-08 11:43] VITALS: TEMP 97.7
[2021-10-08] MEDS ORDERED: CEFTRIAXONE 2 GM in DEXTROSE 5%-WATER 100 ML IVPB ONE (11:45)
[2021-10-08] MEDS ORDERED: DAPTOMYCIN 700 MG in SODIUM CHLORIDE 50 ML IVPB ONE (12:30)
[2021-10-08 13:42] VITALS: BP 127/66; PULSE 72
== END 2021-10-08 13:45 | disposition home or self-care (01) ==
LOC: FINFUSION 11:06 → FM/S 11:13 → FINFUSION 13:45
PROVIDERS: ATTEND Internal Medicine Infectious Disease
DX: M86.9 Osteomyelitis, unspecified (principal)
CPT/HCPCS: 96365; 96367; J0878

== ENCOUNTER 2021-10-09 10:55 | Day surgery (SDC) | payer OTHER, MEDICARE ==
[2021-10-09] MEDS ORDERED: DEXTROSE 5%-WATER 100 ML IVPB ONE (11:19)
[2021-10-09] MEDS ORDERED: CEFTRIAXONE 2 GM in DEXTROSE 5%-WATER 100 ML IVPB ONE (11:30)
[2021-10-09] MEDS ORDERED: DAPTOMYCIN 700 MG in SODIUM CHLORIDE 50 ML IVPB ONE (12:30)
[2021-10-09 13:39] VITALS: BP 118/60; TEMP 97.5
[2021-10-09 13:40] VITALS: PULSE 71
== END 2021-10-09 16:44 | disposition home or self-care (01) ==
LOC: FINFUSION 10:55 → FM/S 10:56 → FINFUSION 16:44
PROVIDERS: ATTEND Internal Medicine Infectious Disease
DX: M86.9 Osteomyelitis, unspecified (principal)
CPT/HCPCS: 96365; 96367; J0878

== ENCOUNTER 2021-10-10 11:17 | Day surgery (SDC) | payer OTHER, MEDICARE ==
[2021-10-10] MEDS ORDERED: DEXTROSE 5%-WATER 100 ML IVPB ONE (11:33)
[2021-10-10] MEDS ORDERED: CEFTRIAXONE 2 GM in DEXTROSE 5%-WATER 100 ML IVPB ONE (11:45)
[2021-10-10] MEDS ORDERED: DAPTOMYCIN 700 MG in SODIUM CHLORIDE 50 ML IVPB ONE (12:30)
[2021-10-10 12:57] LABS: HEMATOCRIT 32.9 % (32.4-45.2); HEMOGLOBIN 11.4 G/dL (10.7-15.3); MCH 29.3 pg (25.7-33.7); MCHC 34.7 g/dl (32.0-36.0); MEAN CELL VOLUME 84.4 fl (80-96); MEAN PLT VOLUME 7.3 fl (7.5-11.1); RDW 15.4 % (11.6-15.6); WHITE BLOOD COUNT 5.8 10^3/uL (4.0-10.8)
[2021-10-10 13:03] LABS: ALBUMIN 3.7 g/dl (3.4-5.0); BILIRUBIN,TOTAL 0.4 mg/dl (0.2-1); CALCIUM 9.1 mg/dl (8.5-10); CREATININE 0.6 mg/dl (0.55-1.3); TOT PROT 7.1 g/dl (6.4-8.2)
[2021-10-10 13:07] VITALS: BP 125/60; PULSE 67; TEMP 98.1
== END 2021-10-10 13:11 | disposition home or self-care (01) ==
LOC: FINFUSION 11:17 → FM/S 11:18 → FINFUSION 13:11
PROVIDERS: ATTEND Internal Medicine Infectious Disease
DX: M86.9 Osteomyelitis, unspecified (principal)
CPT/HCPCS: 36415; 80053; 82550; 85027; 96365; 96367; J0878

== ENCOUNTER 2021-10-11 10:46 | Day surgery (SDC) | payer OTHER, MEDICARE ==
[2021-10-11] MEDS ORDERED: DEXTROSE 5%-WATER 100 ML IVPB ONE (11:13)
[2021-10-11] MEDS ORDERED: CEFTRIAXONE 2 GM in DEXTROSE 5%-WATER 100 ML IVPB ONE (11:30)
[2021-10-11] MEDS ORDERED: DAPTOMYCIN 700 MG in SODIUM CHLORIDE 50 ML IVPB ONE (12:30)
[2021-10-11 15:53] VITALS: BP 112/65; PULSE 66; TEMP 97.8
== END 2021-10-11 13:00 | disposition home or self-care (01) ==
LOC: FINFUSION 10:46 → FM/S 10:54 → FINFUSION 13:00
PROVIDERS: ATTEND Internal Medicine Infectious Disease
DX: M86.9 Osteomyelitis, unspecified (principal)
CPT/HCPCS: 96365; 96367; J0878

== ENCOUNTER 2021-10-12 11:36 | Day surgery (SDC) | payer OTHER, MEDICARE ==
[2021-10-12] MEDS ORDERED: DEXTROSE 5%-WATER 100 ML IVPB ONE (11:53)
[2021-10-12 11:54] VITALS: TEMP 97.5
[2021-10-12] MEDS ORDERED: CEFTRIAXONE 2 GM in DEXTROSE 5%-WATER 100 ML IVPB ONE (12:00)
[2021-10-12] MEDS ORDERED: DAPTOMYCIN 700 MG in SODIUM CHLORIDE 50 ML IVPB ONE (12:30)
[2021-10-12 13:19] VITALS: BP 116/70; PULSE 80
== END 2021-10-12 13:23 | disposition home or self-care (01) ==
LOC: FINFUSION 11:36 → FM/S 11:37 → FINFUSION 13:23
PROVIDERS: ATTEND Internal Medicine Infectious Disease
DX: M86.9 Osteomyelitis, unspecified (principal)
CPT/HCPCS: 96365; 96366; 96367; J0878

== ENCOUNTER 2021-10-13 10:50 | Day surgery (SDC) | payer OTHER, MEDICARE ==
[2021-10-13] MEDS ORDERED: CEFTRIAXONE 2 GM-D5W BAG 2 GM/50 ML BAG IVPB SCH (11:01)
[2021-10-13] MEDS ORDERED: DAPTOMYCIN 700 MG in SODIUM CHLORIDE 50 ML IVPB SCH (11:05)
[2021-10-13 12:28] VITALS: BP 126/62; PULSE 66; TEMP 97.8
== END 2021-10-13 12:30 | disposition home or self-care (01) ==
LOC: FINFUSION 10:50 → FM/S 10:53 → FINFUSION 12:30
PROVIDERS: ATTEND Internal Medicine Infectious Disease
DX: M86.9 Osteomyelitis, unspecified (principal)
CPT/HCPCS: 96365; 96367; J0878

== ENCOUNTER 2021-10-14 10:48 | Day surgery (SDC) | payer OTHER, MEDICARE ==
[2021-10-14] MEDS ORDERED: DEXTROSE 5%-WATER 100 ML IVPB ONE (11:13)
[2021-10-14] MEDS ORDERED: CEFTRIAXONE 2 GM in DEXTROSE 5%-WATER 100 ML IVPB ONE (11:30)
[2021-10-14] MEDS ORDERED: DAPTOMYCIN 700 MG in SODIUM CHLORIDE 50 ML IVPB ONE (12:30)
[2021-10-14 13:04] VITALS: BP 124/52; PULSE 65; TEMP 97.8
== END 2021-10-14 13:00 | disposition home or self-care (01) ==
LOC: FINFUSION 10:48 → FM/S 10:57 → FINFUSION 13:00
PROVIDERS: ATTEND Internal Medicine Infectious Disease
DX: M86.9 Osteomyelitis, unspecified (principal)
CPT/HCPCS: 96365; 96367; J0878

== ENCOUNTER 2021-10-15 10:51 | Day surgery (SDC) | payer OTHER, MEDICARE ==
[2021-10-15] MEDS ORDERED: DEXTROSE 5%-WATER 100 ML IVPB ONE (11:26)
[2021-10-15] MEDS ORDERED: CEFTRIAXONE 2 GM in DEXTROSE 5%-WATER 100 ML IVPB ONE (12:00)
[2021-10-15 12:03] VITALS: TEMP 98
[2021-10-15] MEDS ORDERED: DAPTOMYCIN 700 MG in SODIUM CHLORIDE 50 ML IVPB ONE (13:00)
[2021-10-15 13:21] VITALS: BP 132/60; PULSE 82
== END 2021-10-15 13:18 | disposition home or self-care (01) ==
LOC: FINFUSION 10:51 → FM/S 10:52 → FINFUSION 13:18
PROVIDERS: ATTEND Internal Medicine Infectious Disease
DX: M86.9 Osteomyelitis, unspecified (principal)
CPT/HCPCS: 96365; 96367; J0878

== ENCOUNTER 2021-10-16 11:10 | Day surgery (SDC) | payer OTHER, MEDICARE ==
[2021-10-16] MEDS ORDERED: DEXTROSE 5%-WATER 100 ML IVPB ONE (11:25)
[2021-10-16] MEDS ORDERED: CEFTRIAXONE 2 GM in DEXTROSE 5%-WATER 100 ML IVPB ONE (12:00)
[2021-10-16 12:27] VITALS: BP 133/61; PULSE 75; TEMP 98
[2021-10-16] MEDS ORDERED: DAPTOMYCIN 700 MG in SODIUM CHLORIDE 50 ML IVPB ONE (12:30)
== END 2021-10-16 12:59 | disposition home or self-care (01) ==
LOC: FINFUSION 11:10 → FM/S 11:14 → FINFUSION 12:59
PROVIDERS: ATTEND Internal Medicine Infectious Disease
DX: M86.9 Osteomyelitis, unspecified (principal)
CPT/HCPCS: 36415; 85651; 86140; 96365; 96367; J0878

== ENCOUNTER 2021-10-17 11:13 | Day surgery (SDC) | payer OTHER, MEDICARE ==
[2021-10-17] MEDS ORDERED: DEXTROSE 5%-WATER 100 ML IVPB ONE (11:40)
[2021-10-17] MEDS ORDERED: CEFTRIAXONE 2 GM in DEXTROSE 5%-WATER 100 ML IVPB ONE (11:45)
[2021-10-17] MEDS ORDERED: DAPTOMYCIN 700 MG in SODIUM CHLORIDE 50 ML IVPB ONE (12:30)
[2021-10-17 12:59] VITALS: BP 121/57; PULSE 74; TEMP 98.2
== END 2021-10-17 13:29 | disposition home or self-care (01) ==
LOC: FINFUSION 11:13 → FM/S 11:15 → FINFUSION 13:29
PROVIDERS: ATTEND Internal Medicine Infectious Disease
DX: M86.9 Osteomyelitis, unspecified (principal)
CPT/HCPCS: 96365; 96367; J0878

== ENCOUNTER 2021-10-18 11:01 | Day surgery (SDC) | payer OTHER, MEDICARE ==
[2021-10-18] MEDS ORDERED: CEFTRIAXONE 2 GM in DEXTROSE 5%-WATER 100 ML IVPB ONE (11:30)
[2021-10-18 11:44] LABS: HEMATOCRIT 32.7 % (32.4-45.2); HEMOGLOBIN 11.4 G/dL (10.7-15.3); MCH 29.1 pg (25.7-33.7); MCHC 34.9 g/dl (32.0-36.0); MEAN CELL VOLUME 83.5 fl (80-96); MEAN PLT VOLUME 7.1 fl (7.5-11.1); PLATELET COUNT 285.7 10^3/uL (134-434); RBC 3.92 10^6/uL (3.60-5.2); RDW 14.8 % (11.6-15.6); WHITE BLOOD COUNT 5.9 10^3/uL (4.0-10.8)
[2021-10-18] MEDS ORDERED: DEXTROSE 5%-WATER 100 ML IVPB ONE (11:51)
[2021-10-18 12:07] LABS: ALBUMIN 3.8 g/dl (3.4-5.0); BILIRUBIN,TOTAL 0.4 mg/dl (0.2-1); CALCIUM 9.2 mg/dl (8.5-10); CREATININE 0.7 mg/dl (0.55-1.3); TOT PROT 7.1 g/dl (6.4-8.2)
[2021-10-18] MEDS ORDERED: DAPTOMYCIN 700 MG in SODIUM CHLORIDE 50 ML IVPB ONE (12:30)
[2021-10-18 13:12] VITALS: BP 122/64; PULSE 74
== END 2021-10-18 13:13 | disposition home or self-care (01) ==
LOC: FINFUSION 11:01 → FM/S 11:02 → FINFUSION 13:13
PROVIDERS: ATTEND Internal Medicine Infectious Disease
DX: M86.9 Osteomyelitis, unspecified (principal)
CPT/HCPCS: 36415; 80053; 82550; 85027; 96365; 96366; 96367; J0878

== ENCOUNTER 2022-06-27 08:15 | Day surgery (SDC) | payer OTHER, MEDICARE ==
[2022-06-21 11:52] VITALS: BMI 32.7
[2022-06-27] MEDS ORDERED: TRANEXAMIC ACID 1000 MG/10 ML VIAL IVPUSH ONE (08:44)
[2022-06-27] MEDS ORDERED: VANCOMYCIN 1,000 MG VIAL (RESTRICTED TO ID ONLY) ONE ×2 (09:10→11:11)
[2022-06-27] MEDS ORDERED: MIDAZOLAM HCL 2 MG/2 ML SINGLE DOSE VIAL ONE ×3 (09:48→11:59)
[2022-06-27] MEDS ORDERED: BUPIVACAINE HCL 50 ML ONE (09:50)
[2022-06-27] MEDS ORDERED: CEFAZOLIN 1 GM in DEXTROSE 5%-WATER - 50 ML IVPB ONE (09:57)
[2022-06-27] MEDS ORDERED: VANCOMYCIN 1 GM in D5W (PRE-DOCKED) 1,000 MG/250 ML IVPB ONE (10:00)
[2022-06-27] MEDS ORDERED: DEXAMETHASONE SOD PHOSPHATE/PF 10 MG/ML SDV ONE (10:02)
[2022-06-27] MEDS ORDERED: BUPIVACAINE HCL/PF 0.5% (5 MG/ML) 30 ML VIAL IJ ONE (10:02)
[2022-06-27] MEDS ORDERED: BUPIVACAINE LIPOSOME/PF (EXPAREL) 266 MG/20 ML VIAL ONE (10:03)
[2022-06-27] MEDS ORDERED: ePHEDrine SULFATE 50 MG/1 ML AMPULE ONE (10:48)
[2022-06-27] MEDS ORDERED: DEXAMETHASONE SOD PHOSPHATE 4 MG/1 ML VIAL ONE (11:11)
[2022-06-27] MEDS ORDERED: KETOROLAC TROMETHAMINE 30 MG/1 ML VIAL ONE (11:11)
[2022-06-27] MEDS ORDERED: PHENYLEPHRINE HCL 10 MG/1 ML SINGLE DOSE VIAL ONE (11:11)
[2022-06-27] MEDS ORDERED: ceFAZolin SODIUM 1 GM VIAL ONE (11:11)
[2022-06-27] MEDS ORDERED: TRANEXAMIC ACID 1000 MG/10 ML VIAL ONE (11:11)
[2022-06-27] MEDS ORDERED: ONDANSETRON 4 MG/2 ML VIAL ONE (11:11)
[2022-06-27] MEDS ORDERED: VANCOMYCIN 1,000 MG VIAL (RESTRICTED TO ID ONLY) IVPB ONE (12:00)
[2022-06-27] MEDS ORDERED: BUPIVICAINE 0.25%/MORPH PF/KETOROLAC - 51ML DISP.SYRINGE IA ONE ×2 (12:07→12:10)
[2022-06-27] MEDS ORDERED: PROPOFOL 20 ML ONE (12:18)
[2022-06-27] MEDS ORDERED: MAG HYDROX/AL HYDROX/SIMETH 30 ML UNIT-DOSE CUP PO PRN (13:04)
[2022-06-27] MEDS ORDERED: ONDANSETRON 4 MG/2 ML VIAL IVPUSH PRN (13:04)
[2022-06-27] MEDS ORDERED: LACTATED RINGERS SOLUTION 1,000 ML IV SCH (13:15)
[2022-06-27] MEDS ORDERED: METHOTREXATE 2.5 MG TABLET PO SCH (13:15)
[2022-06-27] MEDS ORDERED: oxyCODONE HCL 5 MG TABLET PO PRN (13:17)
[2022-06-27] MEDS: ACETAMINOPHEN 1000 MG/100 ML BAG IVPB SCH ×2 (15:24→20:47)
[2022-06-27] MEDS: CEFAZOLIN SODIUM 2 GM in DEXTROSE 5%-WATER 100 ML IVPB SCH (17:50)
[2022-06-27] MEDS: SENNOSIDES/DOCUSATE COMBO (SENNA PLUS) TABLET (UD) PO SCH (20:48)
[2022-06-27] MEDS: GABAPENTIN 300 MG CAPSULE PO SCH (20:48)
[2022-06-28] MEDS: CEFAZOLIN SODIUM 2 GM in DEXTROSE 5%-WATER 100 ML IVPB SCH ×2 (01:00→09:17)
[2022-06-28] MEDS: SENNOSIDES/DOCUSATE COMBO (SENNA PLUS) TABLET (UD) PO SCH ×2 (01:02→09:20)
[2022-06-28] MEDS: GABAPENTIN 300 MG CAPSULE PO SCH ×2 (06:21→09:19)
[2022-06-28] MEDS: ACETAMINOPHEN 1000 MG/100 ML BAG IVPB SCH ×2 (06:30→08:43)
[2022-06-28 08:27] LABS: HEMOGLOBIN 11.6 G/dL (10.7-15.3); MCH 30.4 pg (25.7-33.7); MCHC 35.2 g/dl (32.0-36.0); MEAN CELL VOLUME 86.4 fl (80-96); MEAN PLT VOLUME 7.7 fl (7.5-11.1); PLATELET COUNT 280.5 10^3/uL (134-434); RBC 3.82 10^6/uL (3.60-5.2); WHITE BLOOD COUNT 12.3 10^3/uL (4.0-10.8)
[2022-06-28 08:31] LABS: CALCIUM 8.8 mg/dl (8.5-10); CREATININE 0.6 mg/dl (0.55-1.3)
[2022-06-28] MEDS: oxyCODONE HCL 5 MG TABLET PO PRN ×2 (08:43→13:10)
[2022-06-28] MEDS ORDERED: MULTIVITAMINS (DAILY MVI) TABLET (FP) PO SCH (10:00)
[2022-06-28] MEDS ORDERED: FOLIC ACID 1 MG TABLET (FP) PO SCH (10:00)
[2022-06-28] MEDS ORDERED: ASPIRIN 325 MG TABLET PO SCH (10:00)
[2022-06-28] MEDS ORDERED: PANTOPRAZOLE 40 MG TABLET PO SCH (10:00)
[2022-06-28] MEDS ORDERED: HYDROXYCHLOROQUINE SO4 200 MG TABLET (FP) PO SCH (10:00)
[2022-06-28 17:45] VITALS: BP 109/57; PULSE 80; RESP 17; TEMP 97.9
[2022-06-28] MEDS ORDERED: VANCOMYCIN 1 GM in D5W (PRE-DOCKED) 1,000 MG/250 ML IVPB ONE (22:00)
[2022-07-01] MEDS ORDERED: METHOTREXATE 2.5 MG TABLET PO SCH (22:00)
== END 2022-06-28 17:49 | disposition home or self-care (01) ==
LOC: FASUSAT 08:15 → FM/S 14:17 → FASUSAT 06-28 17:49
PROVIDERS: ATTEND Internal Medicine
PROC: 8E0Y0CZ Robotic Assisted Procedure of Lower Extremity, Open Approach (ICD-10-PCS; 2022-06-27)
PROC: 0SRC0J9 Replacement of Right Knee Joint with Synthetic Substitute, Cemented, Open Approach (ICD-10-PCS; principal; 2022-06-27 11:01)
DX: M17.11 Unilateral primary osteoarthritis, right knee (principal)
CPT/HCPCS: 20985; 27447; C1776; S2900; 36415; 73560-TC-RT-FY; 80048; 85027; 88305-TC; 88311-TC; 94760; 97010-GP; 97116-GP; 97162-GP; C1889

== ENCOUNTER 2022-09-12 12:27 | Emergency (ER) | payer OTHER, MEDICARE ==
[2022-09-12 12:48] VITALS: BP 168/96; PULSE 80; RESP 17; TEMP 97.4; BMI 33.5
== END 2022-09-12 19:51 | disposition home or self-care (01) ==
LOC: JER 12:27
DX: S80.211A Abrasion, right knee, initial encounter (principal); S40.012A Contusion of left shoulder, initial encounter; M25.561 Pain in right knee; W01.0XXA Fall on same level from slipping, tripping and stumbling without subsequent striking against object, initial encounter; Y92.524 Gas station as the place of occurrence of the external cause
CPT/HCPCS: 70450-TC; 70486-TC; 73030-TC-LT-FY; 73562-TC-LT-FY; 73562-TC-RT-FY; 73700-TC-RT; 99285-25

== ENCOUNTER 2023-09-15 09:26 | Inpatient (IN) | payer OTHER, MEDICARE ==
[2023-09-15 10:45] LABS: BASO % 0.3 % (0-2.0); EOS % 1.5 % (0-4.5); HEMATOCRIT 38.2 % (32.4-45.2); HEMOGLOBIN 12.9 GM/dL (10.7-15.3); LYMPH % 27.9 % (8-40); MCH 29.1 pg (25.7-33.7); MCHC 33.7 g/dl (32.0-36.0); MEAN CELL VOLUME 86.4 fl (80-96); MEAN PLT VOLUME 6.9 fl (7.5-11.1); MONO % 6.8 % (3.8-10.2); NEUT % 63.5 % (42.8-82.8); PLATELET COUNT 338 10^3/uL (134-434); RBC 4.42 M/mm3 (3.60-5.2); RDW 15.5 % (11.6-15.6); WHITE BLOOD COUNT 5.9 K/mm3 (4.0-10.0)
[2023-09-15 10:52] LABS: INR 1.09 (0.83-1.09); PROTHROMBIN TIME (PATIENT) 12.3 SEC (9.7-13.0)
[2023-09-15 11:11] LABS: CHLORIDE 106 mmol/L (98-107); POTASSIUM 3.9 mmol/L (3.5-5.1); SODIUM 138 mmol/L (136-145)
[2023-09-15 11:13] LABS: CALCIUM 9.5 mg/dL (8.5-10.1)
[2023-09-15 11:14] LABS: ALBUMIN 3.7 g/dl (3.4-5.0); ANION GAP 2 mmol/L (4-13); BLOOD UREA NITROGEN 15.1 mg/dL (7-18); CO2 30 mmol/L (21-32); GLUCOSE,RANDOM 106 mg/dL (74-106)
[2023-09-15 11:17] LABS: CHOLESTEROL 205 mg/dL (50-200); CREATININE 0.6 mg/dL (0.55-1.3); SGOT/AST 15 U/L (15-37); SGPT/ALT 20 U/L (13-61)
[2023-09-15 11:18] LABS: BILIRUBIN,TOTAL 0.5 mg/dL (0.2-1); LDL CHOLESTEROL (ONLY SJRH) 136 mg/dL (5-100); TOT PROT 7.4 g/dl (6.4-8.2)
[2023-09-15 11:19] LABS: ALK PHOS 118 U/L (45-117); HDL CHOLESTEROL 47 mg/dL (40-60)
[2023-09-15 12:23] LABS: URINE COLOR YELLOW
[2023-09-15 12:24] LABS: URINE APPEARANCE CLEAR; URINE BILIRUBIN NEGATIVE (NEGATIVE); URINE GLUCOSE (UA) NEGATIVE (NEGATIVE); URINE KETONE NEGATIVE (NEGATIVE); URINE LEUK ESTERASE NEGATIVE (NEGATIVE); URINE NITRITE NEGATIVE (NEGATIVE); URINE PROTEIN NEGATIVE (NEGATIVE); URINE UROBILINOGEN 0.2 mg/dL (0.2-1.0)
[2023-09-15] MEDS ORDERED: ASPIRIN 325 MG TABLET ONE (12:58)
[2023-09-15] MEDS: ASPIRIN 325 MG TABLET PO ONE (12:59)
[2023-09-15] MEDS ORDERED: ATORVASTATIN CA 80 MG TABLET (FP) ONE (22:19)
[2023-09-15] MEDS: ATORVASTATIN CA 80 MG TABLET (FP) PO SCH (22:29)
[2023-09-16 06:19] LABS: BASO % 0.7 % (0-2.0); EOS % 1.9 % (0-4.5); HEMATOCRIT 35.6 % (32.4-45.2); HEMOGLOBIN 11.9 GM/dL (10.7-15.3); LYMPH % 22.5 % (8-40); MCH 28.9 pg (25.7-33.7); MCHC 33.5 g/dl (32.0-36.0); MEAN CELL VOLUME 86.4 fl (80-96); MEAN PLT VOLUME 7.2 fl (7.5-11.1); MONO % 5.6 % (3.8-10.2); NEUT % 69.3 % (42.8-82.8); PLATELET COUNT 326 10^3/uL (134-434); RBC 4.13 M/mm3 (3.60-5.2); RDW 15.4 % (11.6-15.6); WHITE BLOOD COUNT 7.8 K/mm3 (4.0-10.0)
[2023-09-16 06:34] LABS: POTASSIUM 3.8 mmol/L (3.5-5.1)
[2023-09-16 06:40] LABS: CALCIUM 9.2 mg/dL (8.5-10.1)
[2023-09-16 06:41] LABS: ALBUMIN 3.3 g/dl (3.4-5.0); BLOOD UREA NITROGEN 17.1 mg/dL (7-18); MAGNESIUM 2.3 mg/dL (1.8-2.4)
[2023-09-16 06:44] LABS: CREATININE 0.7 mg/dL (0.55-1.3); PHOSPHOROUS 3.8 mg/dL (2.5-4.9)
[2023-09-16 06:45] LABS: BILIRUBIN,TOTAL 0.6 mg/dL (0.2-1); TOT PROT 6.9 g/dl (6.4-8.2)
[2023-09-16] MEDS ORDERED: CLOPIDOGREL BISULFATE 75 MG TABLET (FP) PO SCH (10:00)
[2023-09-16] MEDS ORDERED: ASPIRIN COATED 81 MG TABLET.EC ONE (10:50)
[2023-09-16] MEDS ORDERED: FOLIC ACID 1 MG TABLET (FP) ONE (10:50)
[2023-09-16] MEDS: FOLIC ACID 1 MG TABLET (FP) PO SCH (10:51)
[2023-09-16] MEDS: ASPIRIN COATED 81 MG TABLET.EC PO SCH (10:51)
[2023-09-16] MEDS ORDERED: ENOXAPARIN NA (PORCINE) 40 MG/0.4 ML DISP.SYRIN SQ ONE (12:55)
[2023-09-16] MEDS: ENOXAPARIN NA (PORCINE) 40 MG/0.4 ML DISP.SYRIN SQ SCH (12:55)
[2023-09-16 16:34] VITALS: BMI 32.2
[2023-09-17 08:15] LABS: BASO % 0.7 % (0-2.0); EOS % 2.5 % (0-4.5); HEMATOCRIT 37.9 % (32.4-45.2); HEMOGLOBIN 12.5 GM/dL (10.7-15.3); LYMPH % 23.4 % (8-40); MCH 28.8 pg (25.7-33.7); MCHC 32.9 g/dl (32.0-36.0); MEAN CELL VOLUME 87.5 fl (80-96); MEAN PLT VOLUME 7.7 fl (7.5-11.1); NEUT % 67.4 % (42.8-82.8); PLATELET COUNT 321 10^3/uL (134-434); RBC 4.33 M/mm3 (3.60-5.2); WHITE BLOOD COUNT 6.1 K/mm3 (4.0-10.0)
[2023-09-17 08:25] LABS: POTASSIUM 3.7 mmol/L (3.5-5.1)
[2023-09-17 08:40] LABS: BLOOD UREA NITROGEN 15.6 mg/dL (7-18); CALCIUM 9.2 mg/dL (8.5-10.1)
[2023-09-17 08:46] LABS: CREATININE 0.7 mg/dL (0.55-1.3)
[2023-09-17 14:31] VITALS: BP 117/61; PULSE 74; RESP 19; TEMP 97.3
[2023-09-18] MEDS ORDERED: METHOTREXATE 2.5 MG TABLET PO SCH (10:00)
== END 2023-09-17 16:03 | disposition home or self-care (01) | DRG 65 ==
LOC: JER 09:26 → JERBED 14:59 → OBSVTOIN 09-16 09:41 → J4W 09-16 14:49
PROVIDERS: ADMIT Internal Medicine; ATTEND Nurse Practitioner
DX: I63.89 Other cerebral infarction (principal); G81.94 Hemiplegia, unspecified affecting left nondominant side; M32.9 Systemic lupus erythematosus, unspecified; M06.9 Rheumatoid arthritis, unspecified
CPT/HCPCS: 36415; 70450-TC; 70496-TC; 70498-TC; 70551-TC; 80048; 80053; 80061; 81003; 83036; 83735; 84100; 84439; 84443; 85025; 85610; 85730; 86850; 86900; 86901; 93005; 93010; 93306-TC; 93880-TC; 97116-GP; 97162-GP; 99285-25; G0378